=== PATIENT | female | born 1955 | race Caucasian/White ===

== ENCOUNTER → 2017-12-19 | Outpatient (CLI) | payer OTHER | END | disposition home or self-care (01) | LOC: RAD 16:36 | DX: M99.03 Segmental and somatic dysfunction of lumbar region (principal) ==

== ENCOUNTER 2018-03-17 15:52 | Emergency (ER) | payer OTHER ==
[~2018-03-17] VITALS: Wt 93.0 kg
[2018-03-17 16:35] LABS: BASO # 0.1 10*3/uL (0.0-0.1); BASO % 0.6 % (0.0-1.0); EOS # 0.1 10*3/uL (0.0-0.4); EOS % 1.4 % (1.0-4.0); HEMATOCRIT 39.6 % (37.0-47.0); HEMOGLOBIN 13.3 g/dl (12.0-16.0); LYMPH # 2.8 10*3/uL (1.3-4.4); LYMPH % 31.8 % (27.0-41.0); MEAN CORPUSCULAR HGB 30.6 pg (27.0-31.0); MEAN CORPUSCULAR HGB CONC 33.6 g/dl (33.0-37.0); MEAN PLATELET VOLUME 9.3 fl (9.6-12.3); MONO # 0.7 10*3/uL (0.1-1.0); MONO % 8.4 % (3.0-9.0); NEUT % 57.6 % (47.0-73.0); PLATELET COUNT AUTOMATED 296 10*3/uL (130-400); RED BLOOD COUNT 4.35 10*6/uL (4.10-5.10); RED CELL DISTRI WIDTH 12.4 % (0-14.5); WHITE BLOOD COUNT 8.7 10*3/uL (4.8-10.8)
[2018-03-17 16:45] LABS: ACT PARTIAL THROMBO TIME 23.1 SECONDS (20.8-31.5)
[2018-03-17 16:52] LABS: ALBUMIN 3.8 gm/dl (3.1-4.5); ALKALINE PHOSPHATASE 88 U/L (45-117); BUN 14 mg/dl (7-24); CHLORIDE 109 mmol/L (98-107); CREATININE 0.84 mg/dL (0.55-1.02); LIPASE 143 U/L (73-393); POTASSIUM 3.8 mmol/L (3.5-5.1); SGOT/AST 15 IU/L (3-35); SGPT/ALT 27 U/L (12-78); SODIUM 142 mmol/L (136-145); TOTAL PROTEIN 7.4 gm/dL (6.4-8.2); TROPONIN I < 0.015 ng/ml (<0.045)
[2018-05-01] MEDS ORDERED: PRAVACHOL40 MG PO (10:59)
[2018-05-01] MEDS ORDERED: OXYBUTYNIN CHLOR5 MG PO (11:01)
[2018-05-01] MEDS ORDERED: AMLODIPINE BESY10 MG PO (11:02)
[2018-05-01] MEDS ORDERED: MAGNESIUM CITR100 MG PO (11:02)
[2018-05-01] MEDS ORDERED: FISH OIL 1,0001 EAC4 PO (11:04)
[2018-05-01] MEDS ORDERED: [UNRECOGNIZED DRUG - OTHER] (11:04)
[2018-05-01] MEDS ORDERED: ASPIRIN81 M1 PO (11:05)
[2018-05-01] MEDS ORDERED: BERBERINE PO (11:06)
[2018-05-01] MEDS ORDERED: METHYL B12 PO (11:06)
[2018-05-01] MEDS ORDERED: METHYL FOLATE PO (11:07)
[2018-05-01] MEDS ORDERED: MAGNESIUM200 MG PO (11:07)
== END 2018-03-17 20:06 | disposition short-term general hospital (02) ==
LOC: ED 15:52
PROVIDERS: Emergency Medicine
DX: I63.9 Cerebral infarction, unspecified (principal); H57.89 Other specified disorders of eye and adnexa

== ENCOUNTER → 2018-04-20 | Outpatient (CLI) | payer OTHER ==
[~2018-04-20] MED LIST: AMLODIPINE BESY10 MG PO; ASPIRIN81 M1 PO; BERBERINE PO; FISH OIL 1,0001 EAC4 PO; MAGNESIUM CITR100 MG PO; MAGNESIUM200 MG PO; METHYL B12 PO; METHYL FOLATE PO; OXYBUTYNIN CHLOR5 MG PO; PRAVACHOL40 MG PO; [UNRECOGNIZED DRUG - OTHER]
[2018-04-20 16:47] LABS: BASO # 0.1 10*3/uL (0.0-0.1); BASO % 0.6 % (0.0-1.0); EOS # 0.2 10*3/uL (0.0-0.4); EOS % 2.3 % (1.0-4.0); HEMATOCRIT 41.1 % (37.0-47.0); LYMPH # 3.1 10*3/uL (1.3-4.4); LYMPH % 38.4 % (27.0-41.0); MEAN CELL VOLUME 92.4 fl (81.0-99.0); MEAN CORPUSCULAR HGB 31.5 pg (27.0-31.0); MEAN CORPUSCULAR HGB CONC 34.1 g/dl (33.0-37.0); MEAN PLATELET VOLUME 9.5 fl (9.6-12.3); MONO # 0.5 10*3/uL (0.1-1.0); MONO % 6.3 % (3.0-9.0); NEUT # 4.2 10*3/uL (2.3-7.9); NEUT % 52.3 % (47.0-73.0); PLATELET COUNT AUTOMATED 305 10*3/uL (130-400); RED BLOOD COUNT 4.45 10*6/uL (4.10-5.10)
[2018-04-20 17:15] LABS: ALKALINE PHOSPHATASE 112 U/L (45-117); BUN 12 mg/dl (7-24); CHLORIDE 104 mmol/L (98-107); CREATININE 0.86 mg/dL (0.55-1.02); POTASSIUM 3.5 mmol/L (3.5-5.1); SGOT/AST 16 IU/L (3-35); SGPT/ALT 33 U/L (12-78); SODIUM 140 mmol/L (136-145); TOTAL PROTEIN 7.7 gm/dL (6.4-8.2)
[2018-04-21 17:06] LABS: ANTICARDIOLIPIN AB, IGG, QN <9 GPL U/mL (0-14); ANTICARDIOLIPIN AB, IGM, QN <9 MPL U/mL (0-12); CARDIOLIPIN AB IGA 161836 <9 APL U/mL (0-11)
[2018-04-22 16:07] LABS: ANTI-THROMBIN III ACTIVITY 124 % (75-135); FACTOR V ACTIVITY 086249 125 % (70-150); PROTEIN S-FUNCTIONAL 164525 76 % (63-140); VON WILLEBRAND ACTIVITY 122 % (50-200)
== END | disposition home or self-care (01) ==
LOC: LAB 16:01
PROVIDERS: Student in an Organized Health Care Education/Training Program
DX: I63.9 Cerebral infarction, unspecified (principal)

== ENCOUNTER → 2018-05-01 | Outpatient (CLI) | payer OTHER ==
--- NOTE | ~2018-05-01 | ST ---
[place], [place] EXERCISE STRESS TEST REPORT NAME: JUAN MANUEL [facility] #: [id number] UNIT #: [id number] ROOM: DOCTOR: JOAQUIN AGUIRRE MD BIRTHDATE: [birth year] DOS: 05/01/2018 LEXISCAN STRESS EKG REFERRING PHYSICIAN: Dr. Vaca. INDICATION: Central chest pain. The patient underwent standard protocol Lexiscan stress EKG. Baseline EKG shows normal sinus rhythm, nonspecific ST-T changes. The heart rate is 66, blood pressure 120/78. The patient's peak heart rate is 118 with a blood pressure of 114/70. The patient had no chest pain, no EKG changes, no ischemic changes. SUMMARY OF FINDINGS: Unremarkable Lexiscan stress EKG. Please see separate report for perfusion scan imaging report results. JOAQUIN AGUIRRE MD CM:STRESS:EXERCISE STRESS TEST REPORT [id number] JOAQUIN AGUIRRE MD
== END | disposition home or self-care (01) ==
LOC: CARD 01:44
DX: I63.89 Other cerebral infarction (principal); R07.89 Other chest pain

== ENCOUNTER → 2018-07-29 | Outpatient (CLI) | payer OTHER ==
[2018-07-29 12:18] LABS: ALKALINE PHOSPHATASE 117 U/L (45-117); BUN 9 mg/dl (7-24); CHLORIDE 106 mmol/L (98-107); CHOLESTEROL 246 mg/dL (<200); CREATININE 0.72 mg/dL (0.55-1.02); HDL CHOLESTEROL 54 mg/dl (40-60); LDL CHOLESTEROL 147 mg/dL (9-159); SGOT/AST 23 IU/L (3-35); SGPT/ALT 53 U/L (12-78); SODIUM 139 mmol/L (136-145); TOTAL PROTEIN 7.8 gm/dL (6.4-8.2); TRIGLYCERIDES 223 mg/dl (<150); VLDL CHOLESTEROL 45 mg/dL (6-40)
== END | disposition home or self-care (01) ==
LOC: LAB 11:34
PROVIDERS: Family Medicine
DX: I63.9 Cerebral infarction, unspecified (principal)

== ENCOUNTER → 2019-02-06 | Outpatient (CLI) | payer OTHER | END | disposition home or self-care (01) | LOC: RAD 19:55 | DX: M17.12 Unilateral primary osteoarthritis, left knee (principal) ==